=== PATIENT | female | born 1995 | race Two or more races ===

== ENCOUNTER 2017-09-12 01:17 | Outpatient (CLI) | payer OTHER, SELFPAY | END 2017-09-12 03:00 | disposition home or self-care (01) | LOC: M LDO 01:17 | DX: O26.892 Other specified pregnancy related conditions, second trimester (principal); Z3A.26 26 weeks gestation of pregnancy; O62.0 Primary inadequate contractions | CPT/HCPCS: G0463 ==

== ENCOUNTER 2017-12-24 09:53 | Inpatient (IN) | payer OTHER ==
[2017-12-24] MEDS ORDERED: LR 1,000 ML IV ×2 (10:52→10:53)
[2017-12-24 11:42] LABS: BASO % 0.1 % (0.0-1.0); EOS % 0.5 % (0.0-3.0); HEMATOCRIT 36.6 % (36.0-47.0); HEMOGLOBIN 12.3 g/dl (12.0-15.5); IMMATURE GRANULOCYTE % 0.3 % (0-3.0); LYMPH # 1.5 10^3/uL (1.5-6.5); LYMPH % 17.2 % (24.0-44.0); MEAN CORPUSCULAR HEMOGLOBIN 30.2 pg (27.0-33.0); MEAN CORPUSCULAR HGB CONC 33.6 g/dl (32.0-36.5); MEAN CORPUSCULAR VOLUME 89.9 fl (80.0-96.0); MONO # 0.4 10^3/uL (0.0-0.8); MONO % 4.4 % (0.0-5.0); NEUTROPHILS # 6.9 10^3/uL (1.8-7.7); NEUTROPHILS % 77.5 % (36.0-66.0); PLATELET COUNT, AUTOMATED 125 10^3/uL (150-450); RED BLOOD COUNT 4.07 10^6/uL (4.00-5.40); RED CELL DISTRIBUTION WIDTH 13.4 % (11.5-14.5); WHITE BLOOD COUNT 8.9 10^3/uL (4.0-10.0)
[2017-12-24] MEDS: LACTATED RINGER'S 1000 ML IV (11:56)
[2017-12-24] MEDS: OXYTOCIN DRIP 30 UNITS in APPROPRIATE DILUENT 1 EA IV (11:57)
[2017-12-24 12:41] LABS: ALT/SGPT 19 U/L (12-78); AST/SGOT 21 U/L (7-37); BILIRUBIN,TOTAL 0.3 MG/DL (0.2-1.0); CREATININE FOR GFR 0.68 MG/DL (0.55-1.30); GLOMERULAR FILTRATION RATE > 60.0 (>60); LDH LACTATE DEHYDROGENASE 165 U/L (84-246); URIC ACID 3.7 MG/DL (2.6-6.0)
[2017-12-24 15:14] LABS: APPEARANCE, URINE CLEAR (CLEAR); BACTERIA, URINE AUTO NEGATIVE (NEGATIVE); BILIRUBIN, URINE AUTO NEGATIVE (NEGATIVE); BLOOD, URINE BLOOD 3+ (NEGATIVE); COLOR, URINE YELLOW (YELLOW); GLUCOSE, URINE (UA) AUTO NEGATIVE (NEGATIVE); KETONE, URINE AUTO 1+ mg/dL (NEGATIVE); LEUKOCYTE ESTERASE, URINE AUTO TRACE (NEGATIVE); MUCUS, URINE SMALL (NEGATIVE); NITRITE, URINE AUTO NEGATIVE (NEGATIVE); PROTEIN, URINE AUTO NEGATIVE (NEGATIVE); RBC, URINE AUTO 1 /HPF (0-3); SPECIFIC GRAVITY URINE AUTO 1.016 (1.002-1.035); SQUAMOUS EPITHELIAL CELL UR AU 2 /HPF (0-6); WBC, URINE AUTO 6 /HPF (0-3)
[2017-12-24 16:21] LABS: TOTAL PROTEIN,RANDOM URINE 14.8 MG/DL (0.0-12.0)
[2017-12-24] MEDS: LR 1,000 ML IV (17:31)
[2017-12-24] MEDS: NALBUPHINE HCL 10 MG/ML AMP (J2300) IV (18:58)
[2017-12-24] MEDS: PROMETHAZINE INJ 25 MG/ML VIAL (J2550) IV (18:58)
[2017-12-24] MEDS ORDERED: FENTANYL 2MCG/ML ROPIVACAINE 0.2% IN 0.9% NACL 200ML IVBAG As Ordered (21:22)
[2017-12-24] MEDS ORDERED: diphenhydrAMINE INJ 50MG/ML VIAL (J1200) IV (22:30)
[2017-12-24] MEDS ORDERED: EPIDURAL COMMENT XX (22:30)
[2017-12-24] MEDS ORDERED: REFRIGERATOR IV KEYS XX (22:30)
[2017-12-24] MEDS ORDERED: EPIDURAL/PCA KEYS XX (22:30)
[2017-12-24] MEDS ORDERED: LACTATED RINGER'S 1000 ML IV (22:30)
[2017-12-24] MEDS ORDERED: ePHEDrine SULFATE 25 MG/5 ML(5MG/ML) SYRINGE IV (22:30)
[2017-12-24] MEDS ORDERED: FENTANYL/ROPIVACAINE/NACL BAG 200 ML EPIDURAL (22:30)
[2017-12-24] MEDS ORDERED: NALOXONE INJ 0.4 MG/1 ML VIAL (J2310) IV (22:30)
[2017-12-25] MEDS: ONDANSETRON 4MG/2ML VIAL (J2405) IV (00:10)
[2017-12-25 08:42] LABS: CORD GAS ABE V -4.2; CORD GAS HCO3 V 19.6 MEQ/L; CORD GAS O2 SAT V 73.6 %; CORD GAS PCO2 V 32.9 mmHg; CORD GAS PH V 7.393 UNITS; CORD GAS PO2 V 29.7 mmHg; CORD GAS SBC V 20.5 MEQ/L; CORD GAS TCO2 V 20.6 MEQ/L
[2017-12-25 08:43] LABS: CORD GAS ABE A -6.9; CORD GAS HCO3 A 21.6 MEQ/L; CORD GAS O2 SAT A 22.7 %; CORD GAS PCO2 A 54.5 mmHg; CORD GAS PH A 7.215 UNITS; CORD GAS PO2 A 14.5 mmHg; CORD GAS SBC A 17.2 MEQ/L; CORD GAS TCO2 A 23.2 MEQ/L
[2017-12-25] MEDS ORDERED: OXYTOCIN 30 UNITS IN 0.9% NaCl 500ML IV BAG (J2590) As Ordered (08:49)
[2017-12-25] MEDS ORDERED: RHOGAM 300 MCG (1500 IU) INJ (J2790) IM (09:30)
[2017-12-25] MEDS ORDERED: ANUSOL HC CREAM 30GM TOP (09:30)
[2017-12-25] MEDS ORDERED: OXYTOCIN INJ 10 UNITS/ML VIAL (J2590) IV (09:30)
[2017-12-25] MEDS ORDERED: MOM 30ML SUSPENSION UDC PO (09:30)
[2017-12-25] MEDS ORDERED: DOCUSATE SODIUM 100 MG CAP PO (09:30)
[2017-12-25] MEDS ORDERED: MEASLES,MUMPS,RUBELLA VACCINE INJ (MMR-II) (90707) SC (09:30)
[2017-12-25] MEDS ORDERED: DIBUCAINE 1% OINTMENT 30GM TOP (09:30)
[2017-12-25] MEDS ORDERED: METHYLERGONOVINE MALEATE 0.2 MG TAB PO (09:30)
[2017-12-25] MEDS ORDERED: miSOPROStol 200 MCG TAB (S0191) PR (09:30)
[2017-12-25] MEDS: IBUPROFEN 800 MG TAB PO ×2 (11:37→21:40)
[2017-12-25] MEDS: PRENATAL VITAMINS CHEWABLE TABLET PO (11:37)
[2017-12-25] MEDS: OXYTOCIN DRIP 30 UNITS in APPROPRIATE DILUENT 1 EA IV ×4 (11:38→21:16)
[2017-12-25] MEDS ORDERED: OXYTOCIN INJ 10 UNITS/ML VIAL (J2590) As Ordered (14:12)
[2017-12-25] MEDS ORDERED: miSOPROStol 200 MCG TAB (S0191) As Ordered (14:12)
[2017-12-26 08:27] LABS: HEMATOCRIT 26.4 % (36.0-47.0); MEAN CORPUSCULAR HGB CONC 33.3 g/dl (32.0-36.5); MEAN CORPUSCULAR VOLUME 90.1 fl (80.0-96.0); PLATELET COUNT, AUTOMATED 123 10^3/uL (150-450); RED BLOOD COUNT 2.93 10^6/uL (4.00-5.40); RED CELL DISTRIBUTION WIDTH 13.6 % (11.5-14.5); WHITE BLOOD COUNT 14.4 10^3/uL (4.0-10.0)
[2017-12-26 08:29] LABS: HEMOGLOBIN 8.8 g/dl (12.0-15.5)
[2017-12-26] MEDS: PRENATAL VITAMINS CHEWABLE TABLET PO (13:31)
[2017-12-26] MEDS: IBUPROFEN 800 MG TAB PO (13:32)
[2017-12-26] MEDS: ACETAMINOPHEN 500 MG TAB PO (20:28)
[2017-12-27] MEDS: PRENATAL VITAMINS CHEWABLE TABLET PO (08:12)
[2017-12-27] MEDS: IBUPROFEN 800 MG TAB PO (08:14)
== END 2017-12-27 11:45 | disposition home or self-care (01) | DRG 774 ==
LOC: M LDI 09:53 → M OBS 12-25 12:29
PROC: 3E033VJ Introduction of Other Hormone into Peripheral Vein, Percutaneous Approach (ICD-10-PCS; 2017-12-24)
PROC: 0HQ9XZZ Repair Perineum Skin, External Approach (ICD-10-PCS; 2017-12-24)
PROC: 10E0XZZ Delivery of Products of Conception, External Approach (ICD-10-PCS; principal; 2017-12-25)
DX: O48.0 Post-term pregnancy (principal); O72.1 Other immediate postpartum hemorrhage; Z3A.41 41 weeks gestation of pregnancy; O69.81X0 Labor and delivery complicated by cord around neck, without compression, not applicable or unspecified; O77.0 Labor and delivery complicated by meconium in amniotic fluid; O70.0 First degree perineal laceration during delivery; Z37.0 Single live birth